=== PATIENT | male | born 1995 | race Caucasian/White ===

== ENCOUNTER 2017-07-04 10:53 | Emergency (ER) | payer SELFPAY ==
[~2017-07-04] VITALS: Ht 157.5 cm; Wt 99.3 kg
[2017-07-04 10:57] VITALS: Ht 157.5 cm; Wt 99.3 kg
[2017-07-04] MEDS ORDERED: ACET325T33 PO (12:48)
[2017-07-04] MEDS ORDERED: IBUP800T25 PO (12:48)
--- NOTE | 2017-07-04 13:06 | ERD ---
ER Documentation Chief Complaint Chief Complaint Complains of a cough x HPI 21-year-old male complaining of cough times 2 days. Patient states that he has diffuse body aches and runny nose. He has a mild sore throat. He denies any neck stiffness but has mild joint pain. Denies vomiting. Denies chest pain. Has not taken medications today. ROS All systems reviewed and are negative except as per history of present illness. Medications Home Meds Active Scripts Acetaminophen* (Tylenol*) 325 Mg Tablet, 2 TAB PO Q6 Y for PAIN AND OR ELEVATED TEMP, #20 TAB Prov:BHAVIK ROLAND PA-C 07/04/17 Ibuprofen* (Motrin*) 800 Mg Tab, 800 MG PO Q6, #30 TAB Prov:BHAVIK ROLAND PA-C 07/04/17 PMhx/Soc Medical and Surgical Hx: pt denies Medical Hx, pt denies Surgical Hx Hx Alcohol Use: No Hx Substance Use: No Hx Tobacco Use: No Smoking Status: Never smoker Physical Exam Vitals Vital Signs Date Time Temp Pulse Resp B/P Pulse Ox O2 Delivery O2 Flow Rate FiO2 07/04/17 10:57 100.1 105 20 138/75 99 Physical Exam GENERAL: The patient is well-appearing, well-nourished, in no acute distress HEENT: Atraumatic. Conjunctivae are pink. Pupils equal, round, and reactive to light. There is no scleral icterus. Tympanic membranes clear bilaterally. Oropharynx clear. No nystagmus or photophobia. NECK: C-spine is soft and supple. There is no meningismus. There is no cervical lymphadenopathy. No JVD. No bruits. No goiter. CHEST: Clear to auscultation bilaterally. There are no rales, wheezes or rhonchi. HEART: Regular rate and rhythm. No murmurs, clicks, rubs or gallops. No S3 or S4. Procedures/MDM MDM: 21-year-old male complaining of cough and fever. I have low suspicion for meningitis as patient does not have nuchal rigidity on exam. I have low suspicion for bacterial HEENT infection. Exam is non-concerning. I have low suspicion for deep neck abscess as patient does not have pain with turning the neck. Exam is non-concerning. I have low suspicion for pneumonia as patient's breath sounds are within normal limits and oxygen saturation 99% on room air. I have low suspicion for acute abdomen patient exam is non-concerning. Patient likely has viral syndrome and will be recommended to take antipruritics. Patient is discharged with strict ER precautions and told to return to the ER if symptoms change or worsen. Departure Diagnosis: Primary Impression: Cough Condition: Stable Patient Instructions: Cough, Chronic, Uncertain Cause, (Adult), Viral Syndrome (Adult) Referrals: [facility] YOU HAVE RECEIVED A MEDICAL SCREENING EXAM AND THE RESULTS INDICATE THAT YOU DO NOT HAVE A CONDITION THAT REQUIRES URGENT TREATMENT IN THE EMERGENCY DEPARTMENT. FURTHER EVALUATION AND TREATMENT OF YOUR CONDITION CAN WAIT UNTIL YOU ARE SEEN IN YOUR DOCTORS OFFICE WITHIN THE NEXT 1-2 DAYS. IT IS YOUR RESPONSIBILITY TO MAKE AN APPOINTMENT FOR FOLOW-UP CARE. IF YOU HAVE A PRIMARY DOCTOR --you should call your primary doctor and schedule an appointment IF YOU DO NOT HAVE A PRIMARY DOCTOR YOU CAN CALL OUR PHYSICIAN REFERRAL HOTLINE AT IF YOU CAN NOT AFFORD TO SEE A PHYSICIAN YOU CAN CHOSE FROM THE FOLLOWING [facility] CLINICS [facility] [address] [facility]. [facility] [address] [facility] [place] [address] [facility] [facility] [address] [facility] [facility] [address] [facility]. [facility]. [address] Additional Instructions: FOLLOW UP WITH YOUR PRIMARY CARE PHYSICIAN TOMORROW.Return to this facility if you are not improving as expected. BHAVIK ROLAND PA-C Jul 04, 2017 13:06
== END 2017-07-04 13:25 | disposition home or self-care (01) ==
LOC: FTE 10:53
DX: R05 Cough (principal)
CPT/HCPCS: 99283